=== PATIENT | female | born 1955 | race Hispanic/Latino ===

== ENCOUNTER 2017-03-29 09:37 | Emergency (ER) | payer BC ==
[~2017-03-29] VITALS: Ht 160 cm; Wt 61.2 kg
[~2017-03-29 09:37] MED LIST: ASTHMA INHALER; AZITHROMYCIN250 MG PO; CALCIUM; DAILY VITAMIN1 EAC3 PO; VITAMIN D; Z.3.CENTRUM SILVER1; [UNRECOGNIZED DRUG - REMARK]
[2017-03-29 11:07] LABS: STREPTOCOCCUS GRP A ANTIGEN NEGATIVE (NEGATIVE)
[2017-03-29 11:15] LABS: INFLUENZAE A&B ANTIGEN (RAPID) NEGATIVE (NEGATIVE)
[2017-03-29 12:09] VITALS: BP 153/89
== END 2017-03-29 12:23 | disposition home or self-care (01) ==
LOC: ER 09:37
DX: R05 Cough (principal); R51 Headache; J06.9 Acute upper respiratory infection, unspecified
CPT/HCPCS: 83518; 87070; 87400; 99283

== ENCOUNTER → 2017-05-01 | Outpatient (CLI) | payer BC ==
--- NOTE | 2017-05-01 11:20 | Diagnostic Imaging Report ---
EXAM: DXA BONE DENSITY INDICATIONS: Back pain COMPARISON: 04/07/2014 and 11/07/2011 FINDINGS: Proximal left femur bone mineral density (BMD) (g/cm2):0.79 Femur T-score (standard deviation relative to young adult mean BMD): -0.7 Femur Z-score (standard deviation relative to age-matched control group):0.6 Lumbar bone mineral density (BMD) (g/cm2):0.88 Lumbar T-score (standard deviation relative to young adult mean BMD): -1.5 Lumbar Z-score (standard deviation relative to age-matched control group):0.1 Change since prior exam (%): Femur:0.4% Spine:-6.1%. Change since oldest prior exam (%): Femur:-4.3% Spine:-11.8% CONCLUSION: Bone mineral density is classified as osteopenia as evidenced by bone mineral density of the spine. Fracture risk is moderate. World Health Organization Classification: *The Z-score is provided for informational purposes. The T-score is preferable for clinical decisions. When comparing exams, a change of >4% is considered statistically significant. SUGGESTED RECOMMENDATIONS: Normal \T\ Osteopenia:Consideration should be given to use of calcium supplementation, daily multiple vitamins and adequate exercise, as preventive measures against osteoporosis, if clinically indicated. Osteoporosis \T\ Severe Osteoporosis:In addition to the above, consideration should be given to medical therapy against osteoporosis, if clinically indicated. Dictated by: Marcus Ureña M.D. on 05/01/2017 at 11:19 Electronically approved by: Marcus Ureña M.D. on 05/01/2017 at 11:19
--- NOTE | 2017-05-01 15:32 | Diagnostic Imaging Report ---
EXAMINATION: MRI of the lumbar spine without contrast HISTORY: Low back pain radiating to the right lower extremity for the last year COMPARISON: None. TECHNIQUE: Sagittal T1, T2, STIR; axial T2 and proton density. FINDINGS: Please note, the patient has transitional vertebral anatomy. Nerve roots as numbered in this report may not correspond to standard dermatomal patterns. Based on the last rib-bearing vertebra and for the purposes of the current examination is one is sacralized and there is a rudimentary S1-S2 disc. Curvature/Alignment: Normal lordosis. Mild dextroscoliosis with apex at L3-L4. Vertebrae: No evidence of recent fracture, infection, or neoplasm. Conus: Normal, terminating at L1-L2 Cauda equina: Unremarkable. Lower thoracic: Unremarkable. Paraspinal soft tissues: Moderate paraspinal structure atrophy from L3 to the sacrum. Partially visualized T2 hyperintense possible cyst or hemangioma in the right lobe of the liver, a right upper quadrant ultrasound is recommended for further characterization if not previously evaluated. Degenerative changes: L1-L2: Unremarkable. L2-L3: Minimal asymmetric to the right disc bulge and facet arthrosis without stenosis L3-L4: Mild asymmetric left disc osteophyte and facet hypertrophic disease without stenosis L4-L5: The great disc height and T2 signal intensity as well as asymmetric to the right disc osteophyte and moderate facet arthrosis mainly on the right. Mild right foraminal stenosis. L5-S1: Symmetric disc bulge and prominent facet arthrosis. Grade 1 anterolisthesis. No significant canal or foraminal stenosis. Bilateral facet joint effusion, bone marrow edema, periarticular swelling related to degenerative synovitis or stone the right. The pulmonary edema is extending to the right L5 and S1 pedicles. S1-S2: Rudimentary disc. Sacroiliac joints: Mild degenerative changes mainly on the left. Bilateral lumbosacral pseudoarthroses. IMPRESSION: Transitional lumbosacral anatomy as detailed above. 1. Grade 1 degenerative spondylolisthesis at L5-S1. 2. Advanced facet arthrosis and degenerative synovitis at L5-S1 worst on the right. 3. Mild degenerative foraminal stenosis on the right at L4-5. 4. Partially visualized T2 hyperintense focus in the liver, a right upper quadrant ultrasound is recommended. Signed by: Dr. Nancy Linda M.D. on 05/01/2017 3:29 PM
--- NOTE | 2017-05-06 15:47 | Diagnostic Imaging Report ---
#[id number] - MGSCRNBI #BILATERAL DIGITAL SCREENING MAMMOGRAM WITH CAD: 05/01/2017 CLINICAL: Routine screening. Comparison is made to exams dated: 04/07/2014 mammogram and 11/21/2012 mammogram - [facility]. Current study contains 4 films. There are scattered fibroglandular elements in both breasts. Current study was also evaluated with a Computer Aided Detection (CAD) system. There are benign lymph nodes in both breasts. There also is a benign calcification in the right breast. No significant masses, calcifications, or other findings are seen in either breast. There has been no significant interval change. IMPRESSION: BENIGN There is no mammographic evidence of malignancy. A 1 year screening mammogram is recommended. The patient will be notified by letter of the results. George merchant/evan:05/06/2017 14:57:50 Supervisor [employer]: Taty CHAVIS(Melecio)(M), [facility] letter sent: Compared to Prior B9 Mammogram BI-RADS: 2 Benign
== END ==
LOC: MRI 07:21
PROVIDERS: ATTEND Internal Medicine
DX: Z12.31 Encounter for screening mammogram for malignant neoplasm of breast (principal); M89.9 Disorder of bone, unspecified; M54.40 Lumbago with sciatica, unspecified side
CPT/HCPCS: 72148; 77080

== ENCOUNTER → 2017-05-15 | Outpatient (CLI) | payer BC ==
--- NOTE | 2017-05-15 14:15 | Diagnostic Imaging Report ---
PROCEDURE:US LIVER COMPARISON:CT abdomen 09/11/13, gallbladder ultrasound 03/27/2012, MRI abdomen 06/03/12 INDICATIONS:Hyperintense Focus In Liver TECHNIQUE: Garcia-scale and color Doppler transverse and longitudinal images of the right upper quadrant of the abdomen were obtained. FINDINGS: Liver: 12.8 cm in right mid-clavicular line. Normal echogenicity. A hyperechoic mass in the right lobe measures 1.8 x 1.5 x 1.8 cm. This was found to be a hemangioma on MRI. This measured approximately 1.7 cm by MRI and 1.9 x 1.8 x 1.6 cm by ultrasound. No mass in the left lobe. Main portal vein: 1.1 cm Gallbladder: Absent Common Bile Duct: 0.5 cm. No intrahepatic biliary ductal dilatation. Right kidney: 9.4 cm. Normal echogenicity. No solid masses or hydronephrosis. Pancreas: The visualized portions are diffusely increased in echotexture without mass or ductal dilatation. Inferior vena cava: Patent. Aorta: Within normal limits. Ascites: None in the right upper quadrant of the abdomen. CONCLUSION: 1. Hyperechoic mass in the right lobe of the liver is stable consistent with hemangioma. No new hepatic masses. 2. Pancreas lipomatosis. 3. Cholecystectomy. Normal biliary tree. Dictated by: Cecily Hannah M.D. on 05/15/2017 at 14:15 Electronically approved by: Cecily Hannah M.D. on 05/15/2017 at 14:15
== END ==
LOC: US 11:47
PROVIDERS: ATTEND Internal Medicine
DX: R16.0 Hepatomegaly, not elsewhere classified (principal)
CPT/HCPCS: 76705

== ENCOUNTER → 2017-05-20 | Outpatient (CLI) | payer BC ==
[~2017-05-20] MED LIST changes: +IOPAMIDOL 370 MG/ML 200 ML INFUS..BTL INJ ONE; +SODIUM CHLORIDE 0.9% 50ML 50 ML ONE
[2017-05-20 10:57] LABS: BLOOD UREA NITROGEN 15 mg/dL (7-26); BUN/CREATININE RATIO 18 (6-25); CREATININE, SERUM 0.83 mg/dL (0.57-1.11); EST GLOMERULAR FILTRATION RATE > 60 ML/MIN (60-)
--- NOTE | 2017-05-20 12:16 | Diagnostic Imaging Report ---
EXAM: CT Abdomen and Pelvis WITH contrast INDICATION: \[id number] \S\1110 \S\APPENDICITIS COMPARISON: Right upper quadrant ultrasound dated 05/15/2017 TECHNIQUE: Abdomen and pelvis were scanned utilizing a multidetector helical scanner from the lung base to the pubic symphysis after administration of IV contrast. Coronal and sagittal reformations were obtained. Routine protocol was performed. Scan was performed when during portal venous phase. IV CONTRAST: 100 mL of Isovue-370 ORAL CONTRAST: Water COMPLICATIONS: None RADIATION DOSE: Total DLP: 330 mGy*cm Estimated effective dose: (DLP x 0.015 x size factor) mSv CTDIvol has been reviewed. It is below the limits set by the Radiation Protocol Committee (RPC). FINDINGS: LINES and TUBES: None. LOWER THORAX: Unremarkable HEPATOBILIARY: 1.8 cm right hepatic lobe hypodensity (series 2, image 24), probably the hemangioma, also seen on prior ultrasound. No other hepatic lesion. No biliary ductal dilation. GALLBLADDER: Cholecystectomy. SPLEEN: No splenomegaly. PANCREAS: No focal masses or ductal dilatation. ADRENALS: No adrenal nodules KIDNEYS/URETERS: Kidneys enhance symmetrically. No hydronephrosis. No cystic or solid mass lesions. No stones. GI TRACT: No abnormal distention, wall thickening, or evidence of bowel obstruction. Appendix is normal. PELVIC ORGANS/BLADDER: Unremarkable. LYMPH NODES: No lymphadenopathy. VESSELS: Unremarkable. PERITONEUM / RETROPERITONEUM: No free air or fluid. BONES: Grade 1 anterolisthesis of L5 in relation to S1. SOFT TISSUES: Unremarkable. IMPRESSION: 1. No acute inflammatory process in the abdomen/pelvis. 2. Normal appendix. Signed by: Dr. Fede Sal MD on 05/20/2017 12:12 PM
== END ==
LOC: CT 09:59
PROVIDERS: ATTEND Internal Medicine
DX: R10.9 Unspecified abdominal pain (principal); D18.03 Hemangioma of intra-abdominal structures
CPT/HCPCS: 36415; 74177; 82565; 84520; Q9967

== ENCOUNTER 2017-08-14 15:51 | Outpatient (RCR) | payer BC ==
[~2017-08-14 15:51] MED LIST changes: -IOPAMIDOL 370 MG/ML 200 ML INFUS..BTL INJ ONE; -SODIUM CHLORIDE 0.9% 50ML 50 ML ONE
== END 2017-08-15 ==
LOC: PT 15:51
PROVIDERS: ATTEND Neurological Surgery
DX: M51.17 Intervertebral disc disorders with radiculopathy, lumbosacral region (principal); M62.81 Muscle weakness (generalized)

== ENCOUNTER 2017-09-11 16:00 | Outpatient (RCR) | payer BC | END 2017-09-14 | LOC: PT 16:00 | PROVIDERS: ATTEND Neurological Surgery | DX: M51.17 Intervertebral disc disorders with radiculopathy, lumbosacral region (principal) | CPT/HCPCS: 97139 ==

== ENCOUNTER 2017-09-20 09:00 | Outpatient (RCR) | payer BC | END 2017-10-15 | LOC: PT 09:00 | PROVIDERS: ATTEND Neurological Surgery | DX: M51.17 Intervertebral disc disorders with radiculopathy, lumbosacral region (principal); M62.81 Muscle weakness (generalized) ==

== ENCOUNTER 2017-09-22 13:43 | Emergency (ER) | payer BC ==
[~2017-09-22] VITALS: Ht 160 cm; Wt 61.2 kg
[2017-09-22] MEDS ORDERED: PREDNISONE 20 MG TAB PO ONE (14:00)
[2017-09-22] MEDS ORDERED: KETOROLAC TROMETHAMINE 60 MG/2 ML VIAL IM ONE (14:00)
[2017-09-22 15:49] VITALS: BP 144/77
== END 2017-09-22 15:43 | disposition home or self-care (01) ==
LOC: ER 13:43
DX: M54.5 Low back pain (principal); S39.012A Strain of muscle, fascia and tendon of lower back, initial encounter; G89.29 Other chronic pain
CPT/HCPCS: 99283; J1885

== ENCOUNTER → 2018-08-20 | Outpatient (CLI) | payer BC | LOC: MAMMO 07:09 | PROVIDERS: ATTEND Internal Medicine | DX: Z12.31 Encounter for screening mammogram for malignant neoplasm of breast (principal) | CPT/HCPCS: 77067 ==

== ENCOUNTER → 2018-09-26 | Outpatient (CLI) | payer BC ==
--- NOTE | 2018-09-29 08:41 | Diagnostic Imaging Report ---
#[id number] - MGDXLT #UNILATERAL LEFT DIGITAL DIAGNOSTIC MAMMOGRAM WITH SPOT COMPRESSION: 09/26/2018 Comparison is made to exams dated: 08/20/2018 mammogram and 05/01/2017 mammogram - [facility]. Current study contains 3 films. The tissue of the left breast is heterogeneously dense. This may lower the sensitivity of mammography. Additional views demonstrate no underlying abnormality. No significant masses, calcifications, or other findings are seen in the breast. IMPRESSION: BENIGN There is no mammographic evidence of malignancy. A 1 year screening mammogram is recommended. The patient will be notified by letter of the results. ROMA POP M.D. ct/penrad:09/26/2018 16:28:31 Is Technician: Taty CHAVIS(Melecio)(Magy), [facility] letter sent: Normal Exam Mammogram BI-RADS: 2 Benign
== END ==
LOC: MAMMO 12:11
PROVIDERS: ATTEND Internal Medicine
DX: N64.59 Other signs and symptoms in breast (principal)

== ENCOUNTER 2019-09-05 16:01 | Emergency (ER) | payer BC ==
[~2019-09-05] VITALS: Ht 160 cm; Wt 61.2 kg
[2019-09-05] MEDS ORDERED: TETRACAINE HCL 0.5% OPTH SOLN 4 ML BTL ONE (16:50)
[2019-09-05] MEDS ORDERED: TETRACAINE HCL 0.5% OPTH SOLN 4 ML BTL OP ONE (17:15)
--- OUTSIDE RECORDS SUMMARY | 2019-10-15 22:11 | XMS REPORT | Continuity of Care Document ---
Author Author [facility] Organization [facility] Address [address] [place] [address] Phone Unavailable Care Team Providers Care Sewing Pattern Layout Technician Name Role Phone JONAH April MICHELLE Attphys Unavailable PAM TRIANA Attphys Unavailable Problems This patient has no known problems. Allergies, Adverse Reactions, Alerts This patient has no known allergies or adverse reactions. Medications This patient has no known medications. Procedures This patient has no known procedures. Results Test Description Test Time Test Comments Results Result Comments Source CHEST 2 VIEWS 2019-03-14 12:35:00 [facility] [address] [place], [place] [address] Patient Name: GAMALIEL ESQUIVEL V MR #: [id number] : 1955 Age/Sex: 63/F Req #: [id number] Adm Physician: Ordered by: ROMA LANTIGUA [employer] Report #: [id number] Location: ER Room/Bed: Procedure: [id number] DX/CHEST 2 VIEWS Exam Date: 03/14/19 Exam Time: 1222 REPORT STATUS: Signed EXAMINATION: PA and lateral views of the chest. COMPARISON: None CLINICAL HISTORY: Cough, shortness of breath DISCUSSION: Lines/tubes: None. Lungs: The lungs are well inflated and clear. No pneumonia or pulmonary edema. Pleura: No pleural effusion or pneumothorax. Heart and mediastinum: The cardiomediastinal silhouette is normal. Bones and soft tissues: No acute bony abnormalities. IMPRESSION: No acute cardiopulmonary abnormalities. Signed by: Dr. Brock Nichols M.D. on 03/14/2019 12:36 PM Dictated By: BROCK NICHOLS MD 1236 Transcribed By: ANNABELLE on 03/14/19 1236 COPY TO: ROMA LANTIGUA NP MAMMOGRAPHY DIGITAL DX UNI LT 2018-09-26 15:53:00 [place] [address] Patient Name: GAMALIEL ESQUIVEL V MR #: [id number] : 1955 Age/Sex: 63/F Req #: [id number] Adm Physician: Ordered by: PAM TRIANA MD Report #: [id number] Location: MAMMO Room/Bed: Procedure: [id number] MG/MAMMOGRAPHY DIGITAL DX UNI LT Exam Date: 09/26/18 Exam Time: 1533 REPORT STATUS: Signed #[id number] - MGDXLT #UNILATERAL LEFT DIGITAL DIAGNOSTIC MAMMOGRAM WITH SPOT COMPRESSION: 09/26/2018 Comparison is made to exams dated: 08/20/2018 mammogram and 05/01/2017 mammogram - [facility]. Current study contains 3 films. The tissue of the left breast is heterogeneously dense. This may lower the sensitivity of mammography. Additional views demonstrate no underlying abnormality. No significant masses, calcifications, or other findings are seen in the breast. IMPRESSION: BENIGN There is no mammographic evidence of malignancy. A 1 year screening mammogram is recommended. The patient will be notified by letter of the results. ROMA POP M.D. ct/penrad:09/26/2018 16:28:31 Cad Administrator: Taty Schmidt RT(R)(M), [facility] letter sent: Normal Exam Mammogram BI-RADS: 2 Benign Dictated By: ROMA POP MD 27 Transcribed By: EVAN on 09/26/181627 COPY TO: PAM TRIANA MD MAMMOGRAPHY DIGITAL SCR BILAT 2018-08-20 09:22:00 [place] [address] Patient Name: GAMALIEL ESQUIVEL V MR #: [id number] : 1955 Age/Sex: 63/F Req #: [id number] [facility] Physician: Ordered by: PAM TRIANA MD Report #: [id number] Location: MAMMO Room/Bed: Procedure: [id number] MG/MAMMOGRAPHY DIGITAL SCR BILAT Exam Date: 08/20/18 Exam Time: 0841 REPORT STATUS: Signed #[id number] - MGSCRBIL #BILATERAL DIGITAL SCREENING MAMMOGRAM WITH CAD: 08/20/2018 CLINICAL: Routine screening. Comparison is made to exams dated: 05/01/2017 mammogram and 04/07/2014 mammogram - [facility]. Current study contains 4 films. The tissue of both breasts is heterogeneously dense. This may lower the sensitivity of mammography. Current study was also evaluated with a Computer Aided Detection (CAD) system. There is an irregular density in the left breast at 12 o'clock middle depth. This is high lighted with CAD analysis. Benign calcification is stable in the right breast. No other significant masses, calcifications, or other findings are seen in either breast. IMPRESSION: INCOMPLETE: NEEDS ADDITIONAL IMAGING EVALUATION The irregular density in the left breast is indeterminate. Additional views with possible ultrasound are recommended. The patient will be contacted by the Mammography Department to schedule this appointment. George Stark Jr., D.O. cw/:09/09/2018 08:55:11 Cad Administrator: Taty CHAVIS (R)(Magy), [facility] letter sent: Additional Imaging Needed Mammogram BI-RADS: 0 Indeterminate Dictated By: GEORGE STARK DO 4 Transcribed By: EVAN on 09/09/18854 COPY TO: PAM TRIANA MD CT ABDOMEN/PELVIS W [place] [address] Patient Name: GAMALIEL ESQUIVEL V MR #: [id number] : 1955 Age/Sex: 61/F Req #: [id number] [facility] Physician: Ordered by: PAM TRIANA MD Report #: [id number] Location: CT Room/Bed: Procedure: [id number] CT/CT ABDOMEN/PELVIS W Exam Date: 05/20/17 Exam Time: 1110 REPORT STATUS: Signed EXAM: CT Abdomen and Pelvis WITH contrast INDICATION: COMPARISON: Right upper quadrant ultrasound dated 05/15/2017 TECHNIQUE: Abdomen and pelvis were scanned utilizing a multidetector helical scanner from the lung base to the pubic symphysis after administration of IV contrast. Coronal and sagittal reformations were obtained. Routine protocol was performed. Scan was performed when during portal venous phase. IV CONTRAST: 100 mL of Isovue-370 ORAL CONTRAST: Water COMPLICATIONS: None RADIATION DOSE: Total DLP: 330 mGy*cm Estimated effective dose: (DLP x 0.015 x size factor) mSv CTDIvol has been reviewed. It is below the limits set by the Radiation Protocol Committee (RPC). FINDINGS: LINES and TUBES: None. LOWER THORAX: Unremarkable HEPATOBILIARY: 1.8 cm right hepatic lobe hypodensity (series 2, image 24), probably the hemangioma, also seen on prior ultrasound. No other hepatic lesion. No biliary ductal dilation. GALLBLADDER: Cholecystectomy. SPLEEN: No splenomegaly. PANCREAS: No focal masses or ductal dilatation. ADRENALS: No adrenal nodules KIDNEYS/URETERS: Kidneys enhance symmetrically. No hydronephrosis. No cystic or solid mass lesions. No stones. GI TRACT: No abnormal distention, wall thickening, or evidence of bowel obstruction. Appendix is normal. PELVIC ORGANS/BLADDER: Unremarkable. LYMPH NODES: No lymphadenopathy. VESSELS: Unremarkable. PERITONEUM / RETROPERITONEUM: No free air or fluid. BONES: Grade 1 anterolisthesis of L5 in relation to S1. SOFT TISSUES: Unremarkable. IMPRESSION: 1. No acute inflammatory process in the abdomen/pelvis. 2. Normal appendix. Signed by: Dr. Fede Montana MD on 05/20/2017 12:12 PM Dictated By: FEDE MONTANA MD 1212 Transcribed By: ANNABELLE on 05/20/17 1212 COPY TO: PAM TRIANA MD [place] [address] Patient Name: GAMALIEL ESQUIVEL V MR #: [id number] : 1955 Age/Sex: 61/F Req #: [id number] Adm Physician: Ordered by: PAM TRIANA MD Report #: [id number] Location: US Room/Bed: Procedure: [id number] US/US LIVER Exam Date: 05/15/17 Exam Time: 1256 REPORT STATUS: Signed PROCEDURE: US LIVER COMPARISON: CT abdomen 09/11/13, gallbladder ultrasound 03/27/2012, MRI abdomen 06/03/12 INDICATIONS: Hyperintense Focus In Liver TECHNIQUE: Garcia-scale and color Doppler transverse and longitudinal images of the right upper quadrant of the abdomen were obtained. FINDINGS: Liver: 12.8 cm in right mid-clavicular line. Normal echogenicity. A hyperechoic mass in the right lobe measures 1.8 x 1.5 x 1.8 cm. This was found to be a hemangioma on MRI. This measured approximately 1.7 cm by MRI and 1.9 x 1.8 x 1.6 cm by ultrasound. No mass in the left lobe. Main portal vein: 1.1 cm Gallbladder: Absent Common Bile Duct: 0.5 cm. No intrahepatic biliary ductal dilatation. Right kidney: 9.4 cm. Normal echogenicity. No solid masses or hydronephrosis. Pancreas: The visualized portions are diffusely increased in echotexture without mass or ductal dilatation. Inferior vena cava: Patent. Aorta: Within normal limits. Ascites: None in the right upper quadrant of the abdomen. CONCLUSION: 1. Hyperechoic mass in the right lobe of the liver is stable consistent with hemangioma. No new hepatic masses. 2. Pancreas lipomatosis. 3. Cholecystectomy. Normal biliary tree. Dictated by: Jes Crenshaw M.D. on 05/15/2017 at 14:15 Electronically approved by: Jes Crenshaw M.D. on 05/15/2017 at 14:15 Dictated By: JES CRENSHAW MD 1415 Transcribed By: ABIEL on 05/15/17 1415 COPY TO: PAM TRIANA MD BONE DXA DUAL ENERGY [place] [address] Patient Name: GAMALIEL ESQUIVEL V MR #: [id number] : 1955 Age/Sex: 61/F Req #: [id number] Adm Physician: Ordered by: PAM TRIANA MD Report #: [id number] Location: MRI Room/Bed: Procedure: [id number] DX/BONE DXA DUAL ENERGY Exam Date: Exam Time: REPORT STATUS: Signed EXAM: DXA BONE DENSITY INDICATIONS: Back pain COMPARISON: 04/07/2014 and 11/07/2011 FINDINGS: Proximal left femur bone mineral density (BMD) (g/cm2): 0.79 Femur T-score (standard deviation relative to young adult mean BMD): -0.7 Femur Z-score (standard deviation relative to age-matched control group): 0.6 Lumbar bone mineral density (BMD) (g/cm2): 0.88 Lumbar T-score (standard deviation relative to young adult mean BMD): -1.5 Lumbar Z-score (standard deviation relative to age-matched control group): 0.1 Change since prior exam (%): Femur: 0.4% Spine: -6.1%. Change since oldest prior exam (%): Femur: -4.3% Spine: -11.8% CONCLUSION: Bone mineral density is classified as osteopenia as evidenced by bone mineral density of the spine. Fracture risk is moderate. World Health Organization Classification: *The Z-score is provided for informational purposes. The T-score is preferable for clinical decisions. When comparing exams, a change of >4% is considered statistically significant. SUGGESTED RECOMMENDATIONS: Normal T Osteopenia: Consideration should be given to use of calcium supplementation, daily multiple vitamins and adequate exercise, as preventive measures against osteoporosis, if clinically indicated. Osteoporosis T Severe Osteoporosis: In addition to the above, consideration should be given to medical therapy against osteoporosis, if clinically indicated. Dictated by: Marcus Clifton M.D. on 05/01/2017 at 11:19 Electronically approved by: Marcus Clifton M.D. on 05/01/2017 at 11:19 Dictated By: MARCUS CLIFTON MD 18 Transcribed By: ABIEL on 05/01/171118 COPY TO: PAM TRIANA MD MRI SPINE LUMBAR WO [place] [address] Patient Name: GAMALIEL ESQUIVEL V MR #: [id number] : 1955 Age/Sex: 61/F Req #: [id number] Adm Physician: Ordered by: PAM TRIANA MD Report #: [id number] Location: MRI Room/Bed: Procedure: [id number] MRI/MRI SPINE LUMBAR WO Exam Date: 05/01/17 Exam Time: 0810 REPORT STATUS: Signed EXAMINATION: MRI of the lumbar spine without contrast HISTORY: Low back pain radiating to the right lower extremity for the last year COMPARISON: None. TECHNIQUE: Sagittal T1, T2, STIR; axial T2 and proton density. FINDINGS: Please note, the patient has transitional vertebral anatomy. Nerve roots as numbered in this report may not correspond to standard dermatomal patterns. Based on the last rib-bearing vertebra and for the purposes of the current examination is one is sacralized and there is a rudimentary S1-S2 disc. Curvature/Alignment: Normal lordosis. Mild dextroscoliosis with apex at L3-L4. Vertebrae: No evidence of recent fracture, infection, or neoplasm. Conus: Normal, terminating at L1-L2 Cauda equina: Unremarkable. Lower thoracic: Unremarkable. Par aspinal soft tissues: Moderate paraspinal structure atrophy from L3 to the sacrum. Partially visualized T2 hyperintense possible cyst or hemangioma in the right lobe of the liver, a right upper quadrant ultrasound is recommended for further characterization if not previously evaluated. Degenerative changes: L1-L2: Unremarkable. L2-L3: Minimal asymmetric to the right disc bulge and facet arthrosis without stenosis L3-L4: Mild asymmetric left disc osteophyte and facet hypertrophic disease without stenosis L4-L5: The great disc height and T2 signal intensity as well as asymmetric to the right disc osteophyte and moderate facet arthrosis mainly on the right. Mild right foraminal stenosis. L5-S1: Symmetric disc bulge and prominent facet arthrosis. Grade 1 anterolisthesis. No significant canal or foraminal stenosis. Bilateral facet joint effusion, bone marrow edema, periarticular swelling related to degenerative synovitis or stone the right. The pulmonary edema is extending to the right L5 and S1 pedicles. S1-S2: Rudimentary disc. Sacroiliac joints: Mild degenerative changes mainly on the left. Bilateral lumbosacral pseudoarthroses. IMPRESSION: Transitional lumbosacral anatomy as detailed above. 1. Grade 1 degenerative spondylolisthesis at L5-S1. 2. Advanced facet arthrosis and degenerative synovitis at L5-S1 worst on the right. 3. Mild degenerative foraminal stenosis on the right at L4-5. 4. Partially visualized T2 hyperintense focus in the liver, a right upper quadrant ultrasound is recommended. Signed by: Dr. Nancy Linda M.D. on 05/01/2017 3:29 PM Dictated By: NANCY LINDA MD 152 Transcribed By: ANNABELLE on 05/01/17 1529 COPY TO: PAM TRIANA MD MAMMOGRAM DIGITAL SCR [place] [address] Patient Name: GAMALIEL ESQUIVEL V MR #: [id number] : 1955 Age/Sex: 61/F Req #: [id number] Adm Physician: Ordered by: PAM TRIANA MD Report #: [id number] Location: MRI Room/Bed: Procedure: [id number] MG/MAMMOGRAM DIGITAL SCR BI Exam Date: 05/01/17 Exam Time: 0900 REPORT STATUS: Signed #[id number] - MGSCRNBI #BILATERAL DIGITAL SCREENING MAMMOGRAM WITH CAD: 05/01/2017 CLINICAL: Routine screening. Comparison is made to exams dated: 04/07/2014 mammogram and 11/21/2012 mammogram - [facility]. Current study contains 4 films. There are scattered fibroglandular elements in both breasts. Current study was also evaluated with a Computer Aided Detection (CAD) system. There are benign lymph nodes in both breasts. There also is a benign calcification in the right breast. No significant masses, calcifications, or other findings are seen in either breast. There has been no significant interval change. IMPRESSION: BENIGN There is no mammographic evidence of malignancy. A 1 year screening mammogram is recommended. The patient will be notified by letter of the results. George merchant/evan:05/06/2017 14:57:50 Cad Administrator: Taty CHAVIS(R)(M), [facility] letter sent: Compared to Prior B9 Mammogram BI- RADS: 2 Benign Dictated By: GEORGE STARK DO 6138 Transcribed By: EVAN on 05/06/17 1855 COPY TO: PAM TRIANA MD
--- NOTE | 2019-10-19 05:00 | Emergency Department Note ---
History of Present Illnes History of Present Illness Chief Complaint: Eye, Ear, Nose, Throat, Dental History of Present Illness This is a 64 year old female arrived to the ED with complaints of right eye pain, redness and increased lacrimation- denies any trauma. Historian: Patient Arrival Mode: Car Onset (how long ago): day(s) Radiation: Reports non-radiation Severity: mild Duration (how long): day(s) Timing of current episode: constant Progression: unchanged Chronicity: new Context: Denies recent illness Relieving factors: none Exacerbating factors: none Past Medical/Family History Physician Review I have reviewed the patient's past medical and family history. Any updates have been documented here. Past Medical History Recent Fever: No Clinical Suspicion of Infectio: No New/Unexplained Change in Ment: No Past Medical History: Asthma, Osteoarthritis Other Medical History: Arthritis Past Surgical History: Cholecysctectomy, Tubal Ligation Other Surgery: HAND SURGERY BOTH HANDS Social History Smoking Cessation: Never Smoker Counseling Performed: No Alcohol Use: None Any Illegal Drug Use: No TB Exposure/Symptoms: No Physically hurt or threatened: No Family History Family history of heart diseas: No Other Last Tetanus: 2011 Any Pre-Existing Lines (PICC,: No Is patient up to date on immun: Yes Last Flu: UTD Last Pneumovax: UTD Review of Systems Review of Systems Constitutional: Reports no symptoms EENTM: Reports as per HPI, Reports eye pain, Reports tearing Cardiovascular: Reports no symptoms Respiratory: Reports no symptoms Gastrointestinal: Reports no symptoms Genitourinary: Reports no symptoms Musculoskeletal: Reports no symptoms Integumentary: Reports no symptoms Neurological: Reports no symptoms Psychological: Reports no symptoms Endocrine: Reports no symptoms Hematological/Lymphatic: Reports no symptoms Physical Exam Related Data Allergies: Coded Allergies: Penicillins (Verified Allergy, Unknown, RASH, 03/29/17) Triage Vital Signs Vital Signs Date Time Temp Pulse Resp B/P (MAP) Pulse Ox O2 Delivery O2 Flow Rate FiO2 09/05/19 16:40 96.8 83 18 169/103 98 Vital signs reviewed: Yes Physical Exam CONSTITUTIONAL Constitutional: Present well-developed, Present well-nourished HENT HENT: Present normocephalic, Present atraumatic, Present oropharynx clear/moist, Present nose normal HENT L/R: Present left ext ear normal, Present right ext ear normal EYES Eyes: Reports PERRL, Reports other (right eye corneal abrasion noted at the 5 o'clock position, fluorescein uptake noted on exam) NECK Neck: Present ROM normal PULMONARY Pulmonary: Present effort normal, Present breath sounds normal CARDIOVASCULAR Cardiovascular: Present regular rhythm, Present heart sounds normal, Present capillary refill normal, Present normal rate GASTROINTESTINAL Abdominal: Present soft, Present nontender, Present bowel sounds normal GENITOURINARY Genitourinary: Present exam deferred SKIN Skin: Present warm, Present dry MUSCULOSKELETAL Musculoskeletal: Present ROM normal NEUROLOGICAL Neurological: Present alert, Present oriented x 3, Present no gross motor or sensory deficits PSYCHOLOGICAL Psychological: Present mood/affect normal, Present judgement normal Assessment & Plan Medical Decision Making MDM 64-year-old female arrives to the ED with right eye pain, fluorescein consistent with corneal abrasion Assessment & Plan Final Impression: (1) Corneal abrasion Depart Disposition: HOME, SELF-CARE Last Vital Signs Date Time Temp Pulse Resp B/P (MAP) Pulse Ox O2 Delivery O2 Flow Rate FiO2 09/04/20 16:40 96.8 83 18 169/103 98 Home Meds Reported Medications Azithromycin (Z-JORDAN) 250 Mg Tablet, 250 MG PO DAILY, TAB 12/09/15 Multivitamin (DAILY VITAMIN) 1 Each Tablet, PO DAILY 11/27/12 MORENA PUENTE DO Oct 19, 2019 05:00
== END 2019-09-05 17:44 | disposition home or self-care (01) ==
LOC: ER 16:01
DX: H57.11 Ocular pain, right eye (principal); S05.01XA Injury of conjunctiva and corneal abrasion without foreign body, right eye, initial encounter
CPT/HCPCS: 99283

== ENCOUNTER → 2020-01-15 | Outpatient (CLI) | payer BC | LOC: MAMMO 10:32 | PROVIDERS: ATTEND Internal Medicine | DX: Z12.31 Encounter for screening mammogram for malignant neoplasm of breast (principal) | CPT/HCPCS: 77067 ==

== ENCOUNTER → 2020-03-16 | Outpatient (CLI) | payer OTHER | LOC: VACCPMC 13:30 | DX: Z23 Encounter for immunization (principal); Z20.828 Contact with and (suspected) exposure to other viral communicable diseases ==

== ENCOUNTER → 2020-04-11 | Outpatient (CLI) | payer OTHER | LOC: DX 15:04 | PROVIDERS: ATTEND Internal Medicine | DX: M89.9 Disorder of bone, unspecified (principal); R10.11 Right upper quadrant pain | CPT/HCPCS: 76705; 77080 ==

== ENCOUNTER → 2020-04-19 | Outpatient (CLI) | payer OTHER ==
[~2020-04-19] MED LIST changes: +COVID-19 VACC, MRNA(MODERNA)/PF 100 MCG/0.5 ML VIAL IM ONE
== END | DRG 951 ==
LOC: VACCPMC 08:52
DX: Z23 Encounter for immunization (principal); Z20.822 Contact with and (suspected) exposure to COVID-19
CPT/HCPCS: 0012A; 91301

== ENCOUNTER → 2020-10-31 | Outpatient (CLI) | payer OTHER ==
[~2020-10-31] MED LIST changes: -COVID-19 VACC, MRNA(MODERNA)/PF 100 MCG/0.5 ML VIAL IM ONE
== END ==
LOC: RAD 15:36
PROVIDERS: ATTEND Internal Medicine
DX: M16.11 Unilateral primary osteoarthritis, right hip (principal)
CPT/HCPCS: 73521

== ENCOUNTER → 2021-01-12 | Outpatient (CLI) | payer OTHER ==
[~2021-01-12] MED LIST changes: +COVID-19 VACC, MRNA(MODERNA)/PF 100 MCG/0.5 ML VIAL IM ONE
== END ==
LOC: VACCPMC 07:27
DX: Z23 Encounter for immunization (principal); Z20.822 Contact with and (suspected) exposure to COVID-19